=== PATIENT | female | born 2005 | race Caucasian/White ===

== ENCOUNTER 2024-03-29 10:23 | Emergency (ER) | payer MEDICAID, OTHER ==
[2024-03-29] MEDS ORDERED: Metoclopramide HCl 10 MG (2 mL) VIAL ONE (10:45)
[2024-03-29 11:09] LABS: #Basophils Less than 0.03 10x3/uL (0.0-0.2); #Eosinophils 0.03 10x3/uL (0.0-0.5); #Monocytes 0.49 10x3/uL (0.0-1.1); #Neutrophils 5.58 10x3/uL (1.5-8.4); %Basophils 0.3 % (0.0-2.0); %Eosinophils 0.4 % (0.0-6.0); %Lymphocytes 14.1 % (18.0-47.0); %Monocytes 6.8 % (0.0-10.0); Hematocrit 41.8 % (34.9-44.5); Hemoglobin 14.8 g/dL (12.0-15.5); Mean Corpuscular HGB CONC 35.4 g/dL (32.0-36.0); Mean Corpuscular Hemoglobin 29.5 pg (27.0-33.0); Mean Corpuscular Volume 83.4 fL (81.6-98.3); Mean Platelet Volume 10.6 fL (7.4-10.4); Platelet Count 259 10x3/uL (150-450); Red Blood Cell (RBC) Count 5.01 10x6/uL (3.90-5.03); White Blood Cell (WBC) Count 7.16 10x3/uL (3.5-10.5)
[2024-03-29 11:37] LABS: ALT (SGPT) 9 U/L (Less than 34); AST (SGOT) 15 U/L (11-34); Albumin 4.1 g/dL (3.1-4.5); Alkaline Phosphatase 48 U/L (40-100); Anion Gap 15 mmol/L (10-20); BUN (Urea Nitrogen) 11 mg/dL (7.0-18.7); Bilirubin, Total 0.9 mg/dL (0.3-1.2); Calc. Creatinine Clearance 0 mL/min (70-130); Calcium 9.7 mg/dL (7.8-10.44); Carbon Dioxide 21 mmol/L (22-29); Chloride 105 mmol/L (98-107); Estimated GFR 134; Globulin 3.3 g/dL (2.4-3.5); Glucose 88 mg/dL (70-105); Lipase 40 U/L (8-78); Magnesium 1.9 mg/dL (1.7-2.2); Potassium 3.7 mmol/L (3.5-5.1); Protein, Total 7.4 g/dL (6.0-8.3); Sodium 137 mmol/L (136-145)
[2024-03-29 14:12] LABS: Bilirubin Neg (Negative); Blood, Urine Negative (Negative); Clarity Slightly Cloudy (Clear); Glucose, Urine (Dipstick) Normal (Negative); Ketone, Urine 150 mg/dL (Negative); Leukocyte 25 (Negative); Nitrite Negative (Negative); Protein, Urine (Dipstick) 30 mg/dl (Neg-Trace); Specific Gravity, Urine 1.025 (1.005-1.030); Urobilinogen Normal mg/dL (Less than 2)
[2024-03-29 14:22] LABS: Bacteria/HPF 3+ HPF (None Seen); CAUTI Indications for Culture Pregnancy; RBC/HPF 0-3 HPF (0-3); Squamous Epithelial Greater than 50 HPF (0-3)
[2024-03-29 14:23] LABS: Urine Culture Reflex Yes Yes
== END 2024-03-29 14:53 | disposition home or self-care (01) ==
LOC: CSHERS 10:23
DX: O21.9 Vomiting of pregnancy, unspecified (principal); O99.281 Endocrine, nutritional and metabolic diseases complicating pregnancy, first trimester; E86.0 Dehydration; Z3A.12 12 weeks gestation of pregnancy
CPT/HCPCS: 36415; 71045; 80053; 81001; 82010; 83690; 83735; 83880; 84702; 85025; 87086; 87428; 96374; J2765

== ENCOUNTER 2024-04-12 16:48 | Emergency (ER) | payer MEDICAID, OTHER ==
[2024-04-12] MEDS ORDERED: Ondansetron PF 4 MG/2 ML Vial ONE (17:40)
[2024-04-12 18:07] LABS: #Basophils Less than 0.03 10x3/uL (0.0-0.2); #Eosinophils Less than 0.03 10x3/uL (0.0-0.5); #Monocytes 0.38 10x3/uL (0.0-1.1); #Neutrophils 6.13 10x3/uL (1.5-8.4); %Basophils 0.3 % (0.0-2.0); %Eosinophils 0.3 % (0.0-6.0); %Lymphocytes 15.3 % (18.0-47.0); %Monocytes 4.9 % (0.0-10.0); %Neutrophils 78.8 % (40.0-75.0); Hematocrit 38.2 % (34.9-44.5); Mean Corpuscular Hemoglobin 28.8 pg (27.0-33.0); Mean Corpuscular Volume 84.7 fL (81.6-98.3); Mean Platelet Volume 10.4 fL (7.4-10.4); Platelet Count 245 10x3/uL (150-450); RBC Distribution Width 12.6 % (11.5-14.5); Red Blood Cell (RBC) Count 4.51 10x6/uL (3.90-5.03); White Blood Cell (WBC) Count 7.77 10x3/uL (3.5-10.5)
[2024-04-12 18:20] LABS: ALT (SGPT) 9 U/L (Less than 34); AST (SGOT) 19 U/L (11-34); Albumin 3.8 g/dL (3.1-4.5); Alkaline Phosphatase 44 U/L (40-100); Anion Gap 14 mmol/L (10-20); BUN (Urea Nitrogen) 6 mg/dL (7.0-18.7); Bilirubin, Total 0.5 mg/dL (0.3-1.2); Calc. Creatinine Clearance 0 mL/min (70-130); Calcium 9.1 mg/dL (7.8-10.44); Carbon Dioxide 19 mmol/L (22-29); Chloride 107 mmol/L (98-107); Estimated GFR 137; Globulin 3.1 g/dL (2.4-3.5); Glucose 82 mg/dL (70-105); Potassium 3.8 mmol/L (3.5-5.1); Protein, Total 6.9 g/dL (6.0-8.3); Sodium 136 mmol/L (136-145)
[2024-04-12 19:54] LABS: Bilirubin Neg (Negative); Blood, Urine Negative (Negative); Glucose, Urine (Dipstick) >=1000 mg/dL (Negative); Ketone, Urine 50 mg/dL (Negative); Leukocyte Negative (Negative); Nitrite Negative (Negative); Protein, Urine (Dipstick) 15 mg/dl (Neg-Trace); Urobilinogen Normal mg/dL (Less than 2)
[2024-04-12 19:58] LABS: Clarity Clear (Clear)
[2024-04-12 20:19] LABS: Bacteria/HPF 4+ HPF (None Seen); CAUTI Indications for Culture Dysuria,urgency,freq; RBC/HPF None Seen HPF (0-3); Squamous Epithelial 0-3 HPF (0-3); WBC/HPF 0-3 HPF (0-3)
[2024-04-12 20:20] LABS: Urine Culture Reflex No No
== END 2024-04-12 21:20 | disposition home or self-care (01) ==
LOC: CSHERS 16:48
DX: O99.891 Other specified diseases and conditions complicating pregnancy (principal); R11.2 Nausea with vomiting, unspecified; O23.42 Unspecified infection of urinary tract in pregnancy, second trimester; N39.0 Urinary tract infection, site not specified; Z3A.14 14 weeks gestation of pregnancy
CPT/HCPCS: 76815; 80053; 81001; 85025; 96374; J2405

== ENCOUNTER 2024-09-06 10:08 | Day surgery (SDC) | payer OTHER ==
[2024-09-06 10:49] VITALS: BMI 27.4
[2024-09-06] MEDS ORDERED: hydrALAZINE 20 MG/ML VIAL SLOW IVP PRN (11:21)
== END 2024-09-06 13:35 | disposition home or self-care (01) ==
LOC: CSHLD/OP 10:08
PROVIDERS: ATTEND Student in an Organized Health Care Education/Training Program
DX: O47.03 False labor before 37 completed weeks of gestation, third trimester (principal); O99.891 Other specified diseases and conditions complicating pregnancy; M79.89 Other specified soft tissue disorders; Z3A.35 35 weeks gestation of pregnancy; Z90.89 Acquired absence of other organs
CPT/HCPCS: 99283

== ENCOUNTER 2024-09-26 02:00 | Day surgery (SDC) | payer OTHER ==
[2024-09-26] MEDS ORDERED: hydrALAZINE 20 MG/ML VIAL SLOW IVP PRN (02:29)
[2024-09-26 02:57] LABS: Glucose, Urine (Dipstick) Normal (Negative); Leukocyte 25 (Negative); Protein, Urine (Dipstick) 15 mg/dl (Neg-Trace); Specific Gravity, Urine 1.010 (1.005-1.030)
[2024-09-26 03:07] LABS: CAUTI Indications for Culture Pregnancy; RBC/HPF None Seen HPF (0-3); WBC/HPF 0-3 HPF (0-3)
[2024-09-26 03:08] LABS: Bacteria/HPF Rare-Few HPF (None Seen)
[2024-09-26 03:09] LABS: Urine Culture Reflex Yes Yes
== END 2024-09-26 05:05 | disposition home or self-care (01) ==
LOC: CSHLD/OP 02:00 → EEVIPCON 02:00 → CSHLD/OP 05:05
PROVIDERS: ATTEND Obstetrics & Gynecology
DX: O47.1 False labor at or after 37 completed weeks of gestation (principal); O23.43 Unspecified infection of urinary tract in pregnancy, third trimester; Z3A.38 38 weeks gestation of pregnancy; Z90.89 Acquired absence of other organs; Z88.0 Allergy status to penicillin; Z79.899 Other long term (current) drug therapy
CPT/HCPCS: 81001; 87086; 99284

== ENCOUNTER 2024-10-07 07:15 | Inpatient (IN) | payer OTHER ==
[2024-10-07 07:29] VITALS: BMI 30.5
[2024-10-07] MEDS ORDERED: Diphenoxylate HCl/Atropine Tablet PO PRN (07:48)
[2024-10-07] MEDS ORDERED: Carboprost 250 MCG/ML AMP IM PRN (07:48)
[2024-10-07] MEDS ORDERED: Tranexamic Acid 1,000 MG/10 ML VIAL IVP PRN (07:48)
[2024-10-07] MEDS ORDERED: hydrALAZINE 20 MG/ML VIAL SLOW IVP PRN ×2 (07:48→12:09)
[2024-10-07] MEDS ORDERED: Ibuprofen 800 MG TAB PO PRN (07:49)
[2024-10-07] MEDS ORDERED: Lidocaine 1% (PF) 30 ML VIAL SC PRN (07:49)
[2024-10-07 07:58] LABS: Hematocrit 37.6 % (34.9-44.5); Hemoglobin 12.7 g/dL (12.0-15.5); Mean Corpuscular Hemoglobin 27.5 pg (27.0-33.0); Mean Corpuscular Volume 81.6 fL (81.6-98.3); Platelet Count 226 10x3/uL (150-450); Red Blood Cell (RBC) Count 4.61 10x6/uL (3.90-5.03); White Blood Cell (WBC) Count 12.66 10x3/uL (3.5-10.5)
[2024-10-07] MEDS ORDERED: Oxytocin 30 units/NS 500 ML 500 ML IV SCH ×3 (08:00→12:15)
[2024-10-07 08:33] LABS: Hep B Surf Ag - L&D Non-Reactive S/CO (NonReactive)
[2024-10-07 08:35] LABS: Syphilis Antibody Index 0.03 S/CO (<1.00 Non-Reactive)
[2024-10-07] MEDS: fentaNYL/Ropivacaine Epidural 100 ML ONE (08:38)
[2024-10-07] MEDS ORDERED: Acetaminophen 325 MG TAB PO PRN (11:26)
[2024-10-07] MEDS ORDERED: diphenhydrAMINE 50 MG/ML VIAL IVP PRN (11:26)
[2024-10-07] MEDS ORDERED: Ondansetron PF 4 MG/2 ML Vial IVP PRN ×2 (11:26→12:09)
[2024-10-07] MEDS ORDERED: NO NARCS FOR 12 HOURS FS PRN (11:30)
[2024-10-07] MEDS ORDERED: fentaNYL 2 mcg/Ropivacaine 0.2% Epidural 100 ML CADD EPIDURAL SCH (11:30)
[2024-10-07] MEDS: Methylergonovine 0.2 MG/ML VIAL IM PRN (11:48)
[2024-10-07] MEDS ORDERED: Bisacodyl 10 MG SUPP PR PRN (12:09)
[2024-10-07] MEDS ORDERED: Milk Of Magnesia 30 ML UDCUP PO PRN (12:09)
[2024-10-07] MEDS ORDERED: Methylergonovine 0.2 MG/ML VIAL IM PRN (12:09)
[2024-10-07] MEDS: Boostrix 0.5 ML (Tdap) VIAL (>/=7 yrs of age) IM ONE (12:44)
[2024-10-07] MEDS: Ondansetron PF 4 MG/2 ML Vial IVP PRN (12:52)
[2024-10-07] MEDS ORDERED: Bupivacaine 0.25% HCL 30 ML VIAL ONE (13:14)
[2024-10-07] MEDS ORDERED: Bupivacaine HCl 0.5%/Epinephrine 1:200,000/PF 30 ml Vial ONE (13:14)
[2024-10-07] MEDS: Ibuprofen 800 MG TAB PO SCH (14:12)
[2024-10-07] MEDS: Ferrous Sulfate 325 MG TAB PO SCH (18:10)
[2024-10-08 07:56] VITALS: BP 96/54; TEMP 97.9
== END 2024-10-08 12:40 | disposition home or self-care (01) | DRG 807 ==
LOC: CSHLD/OP 07:15 → CSHLD 11:30 → CSHPED 14:30
PROVIDERS: ADMIT Obstetrics & Gynecology; ATTEND Obstetrics & Gynecology
PROC: 10E0XZZ Delivery of Products of Conception, External Approach (ICD-10-PCS; principal; 2024-10-07)
PROC: 0KQM0ZZ Repair Perineum Muscle, Open Approach (ICD-10-PCS; 2024-10-07)
PROC: 4A1HXCZ Monitoring of Products of Conception, Cardiac Rate, External Approach (ICD-10-PCS; 2024-10-07)
DX: O71.4 Obstetric high vaginal laceration alone (principal); Z37.0 Single live birth; Z3A.39 39 weeks gestation of pregnancy; Z79.899 Other long term (current) drug therapy
CPT/HCPCS: 36415; 51702; 85027; 86780; 86850; 86900; 86901; 87340; 99285; J0665; J2210; J2405; J2590